=== PATIENT | female | born 1945 | race Caucasian/White ===

== ENCOUNTER 2020-08-18 13:36 | Outpatient (REF) | payer SELFPAY ==
[2020-08-23 19:18] LABS: Patient Race White; SARS-CoV-2 RNA Undetected (Undetected); SARS-CoV-2 Specimen Source Nasal
== END 2020-08-18 13:56 ==
LOC: NCHCN 13:36
PROVIDERS: PCP Family Medicine; Visit Provider Nurse Practitioner Community Health
DX: Z20.828 Contact with and (suspected) exposure to other viral communicable diseases (principal)
CPT/HCPCS: U0003

== ENCOUNTER 2023-10-04 17:02 | Emergency (ER) | payer MEDICARE, SELFPAY ==
[2023-10-04] VITALS (134 sets, daily range): BP systolic 150–225; BP diastolic 69–184; PULSE 68–72; RESP 11–30; TEMP 36.7; O2SAT 97–100
--- NOTE | 2023-10-04 17:15 | RT.EKG_ITS ---
APPROVED REPORT Exam: Resting ECG Reason for Exam: Left-sided weakness Patient Location: E HR:63 bpm ECG Measurements Heart Rate 63 AXIS OR 171 P 52 QRSd 114 QRS 29 QT 445 T -59 QTc 457 Conclusion Sinus rhythm...normal P axis, V-rate 60- 99 Probable left ventricular hypertrophy...(RaVL+SV3)xQRSd >[address] segment or T wave abnormlaiteis to suggest occlusive AR
--- NOTE | 2023-10-04 17:15 | DI.CT_ITS ---
Exam(s) CT BRAIN NECK CTA EXAM: CT BRAIN NECK CTA CLINICAL HISTORY: Fall/trauma, left-sided weakness. TECHNIQUE: Imaging Protocol: Axial CT angiography was performed with multi-slice acquisition and mu lti-planar and 3D reconstructions. CONTRAST MATERIAL: Intravenous: Omnipaque 350 Contrast volume:85 ml COMPARISON: None FINDINGS: CT Head W/O and W contrast: Ventricles and Extra axial spaces: Normal in size and morphology for the patient's age. Hemorrhage: None. Cerebral parenchyma: No evidence of acute infarct or mass. White matter changes consistent with sm all vessel disease. Midline shift: None. Brainstem/Cerebellum: No acute findings.. Calvarium: Normal. Visualized Paranasal sinuses/Mastoids: Clear. Soft Tissues: Unremarkable. Enhancement: Normal. CTA Brain W: Internal Carotid Arteries: Petrous: Normal. Cavernous: Normal. Cerebral: Normal. Middle Cerebral Arteries: Right: No aneurysm, occlusion or significant stenosis. Left: No aneurysm, occlusion or significant stenosis. 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 Right: No aneurysm, occlusion or significant stenosis. Left: No aneurysm, occlusion or significant stenosis. Posterior cerebral Arteries: Right: No aneurysm, occlusion or significant stenosis. Left: No aneurysm, occlusion or significant stenosis. Vertebral Arteries: Right: No aneurysm, occlusion or significant stenosis. Left: No aneurysm, occlusion or significant stenosis. Basilar Artery: No aneurysm, occlusion or significant stenosis. CTA Neck W: Common Carotid: Right: No dissection, occlusion or significant stenosis. Left: Calcification at bulb. No dissection, occlusion or significant stenosis. External Carotid: Right: No dissection, occlusion or significant stenosis. Left: No dissection, occlusion or significant stenosis. Internal Carotid: Right: Mild calcification no dissection, occlusion or significant stenosis. Left: Moderate calcification causes moderate stenosis, 50-69 percent.. No dissection or occlusion. Vertebral Artery: Right: No dissection, occlusion or significant stenosis. Left: No dissection, occlusion or significant stenosis. Lung Apices: Normal. Bones: No acute abnormality. Degenerative changes in the spine. Soft Tissues: Normal. IMPRESSION: 1. 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 No evidence sign ificant vascular stenosis, dissection or occlusion. 2. Unremarkable CT Head. 3. Neck CT: Minimal calcific plaque right common carotid bulb. Moderate calcific plaque left interna l carotid artery causing moderate stenosis, 50-69 percent.. RADIATION DOSE DELIVERED: Total DLP DATA REPOSITORY: All CT scans at this facility are submitted to the National Radiology Data Registry (NRDR) Dose Index Registry (DIR) with the [employer] (A[employer]). RADIATION OPTIMIZATION: All CT scans at this facility use at least one of these dose optimization te chniques: automated exposure control; mA and/or kV adjustment per patient size (includes targeted exa ms where dose is matched to clinical indication); or iterative reconstruction.
--- NOTE | 2023-10-04 17:15 | DI.CT_ITS ---
Exam(s) CT CHEST/ABD/PEL WO EXAM: CT CHEST/ABD/PEL WO CLINICAL HISTORY: fall, back pain. TECHNIQUE: Imaging Protocol: Axial computed tomography images with coronal and sagittal reformatted images were created and reviewed CONTRAST MATERIAL: Intravenous: Noncontrast Oral: yes COMPARISON: No exams were available for comparison FINDINGS: CHEST: Tracheobronchial tree: Patent where visualized. Pulmonary parenchyma: No consolidation or dominant measurable mass. Pleura: No effusion or pneumothorax. Lymph nodes: Within normal limits. Aorta: Thoracic portion non-dilated. Heart: Mildly enlarged. Aortic prosthesis. Heavy mitral valve calcifications versus mitral valve pr osthesis. No pericardial effusion. Coronary artery calcifications. Bones: Sternal wires. Unremarkable for age. No lytic or blastic lesions.No compression fractures. Severe degenerative changes in the shoulders. No rib fractures visualized. Soft tissues: Unremarkable. ABDOMEN and PELVIS: Liver: Normal density. No measurable mass. Gallbladder and biliary tract: No evidence of stones or wall thickening. No biliary dilatation. Pancreas: Normal density, no abnormal calcifications or inflammatory process. Spleen: Normal. Kidneys: Normal size, contour and axis. No radiodense stones hip. No obstructive uropathy. No suspic ious masses seen. Adrenal glands: No masses seen. Aorta: Abdominal portion non-dilated. Moderate atherosclerotic changes. Lymph nodes: Within normal limits. Soft tissues: Unremarkable. Bladder: Unremarkable. Partially obscured by artifact from hip prostheses. Bowel: No obstruction or bowel wall thickening. Mild diverticulosis. Appendix normal. Normal quanti ty of stool. Peritoneal cavity: No ascites. No focal collection. No mesenteric inflammatory response. Bones: Bilateral hip prostheses. Advanced degenerative changes. No acute pelvic or spine fractures. Reproductive organs: Obscured by artifact from hip prostheses. Probable hysterectomy. IMPRESSION: No acute abnormality in the chest, abdomen or pelvis.. RADIATION DOSE DELIVERED: Total DLP DATA REPOSITORY: All CT scans at this facility are submitted to the National Radiology Data Registry (NRDR) Dose Index Registry (DIR) with the [employer] (ACR). RADIATION OPTIMIZATION: All CT scans at this facility use at least one of these dose optimization te chniques: automated exposure control; mA and/or kV adjustment per patient size (includes targeted exa ms where dose is matched to clinical indication); or iterative reconstruction.
--- OUTSIDE RECORDS SUMMARY | 2023-10-04 17:30 | XMS_ITS | CCD ---
Author Name Unknown Address [address] [place] [address] [id number] Organization Unknown Address [address] [place] [address] [id number] Care Team Providers Care Dry Talc Racker Name Role Phone PHUC LANCASTER Attending Physician [phone] PHUC LANCASTER Rounding (Secondary) Physician [phone] Vital Signs Unknown or Not Available. Allergies Allergy Code Allergy Type Reaction Status No Known Drug Allergies 0 No known drug allergies Active LATEX 0916604 Allergy to substance RASH Acti ve Procedures Unknown or Not Available. History of Immunizations Unknown or Not Available. Problems Unknown or Not Available. Results Unknown or Not Available. Active Medications Medication Code Dose Units Frequency Route Modificatio n Start Date/Time Xarelto 10MG Oral Tablet [id number] 1 TABLET DAILY ORAL 03/17/20 14:12 Prescription Detail TAKE 1 TABLET ORAL DAILY WITH FOOD FOR 3 0 DAYS POST OP (THROUGH 04/08/2021) Acetaminophen 500MG Oral Tablet [id number] 2 TABLET NEEDED EVERY 6 HOURS ORAL 03/17/2021 14:07 Prescription Detail TAKE 2 TABLET ORAL NEEDED EVERY 6 EDUARDO RS PRN PAIN Ondansetron 4MG Oral Tablet, Disintegrating [id number] 4 MILLIGRAMS NEEDED EVERY 6 HOURS ORAL 03/17/2021 14:06 Prescription Detail TAKE 4 MILLIGRAMS ORAL NEEDED EVERY 6 HOURS FOR NAUSEA traMADol HCl 50MG Oral Tablet [id number] 50 MILLIGRAMS NEEDED EVERY 6 HOURS ORAL 03/17/2021 14:06 Prescription Detail TAKE 50 MILLIGRAMS ORAL NEEDED EVERY 6 HOURS FOR PAIN CoQ10 200 MG Oral Capsule [id number] 200 MG DAILY ORAL 03/11 12:56 Prescription Detail TAKE 200 MG ORAL DAILY Ezetimibe 10 MG Oral Tablet 719114 10 MG DAILY ORAL 03/11/20 12:56 Prescription Detail TAKE 10 MG ORAL DAILY Levothyroxine 100MCG Oral Tablet 859354 100 MCG DAILY ORAL 03/11/2021 12:56 Prescription Detail TAKE 100 MCG ORAL DAILY Metoprolol Tartrate 50MG Oral Tablet 429346 50 MILLIGRAMS TWICE A DAY ORAL 03/11 12:56 Prescription Detail TAKE 50 MILLIGRAMS ORAL TWICE A DAY Mirtazapine 15MG Oral Tablet 464778 15 MILLIGRAMS BEDTIME ORAL 12:56 Prescription Detail TAKE 15 MILLIGRAMS ORAL BEDTIME Pravastatin 20MG Oral Tablet 599181 20 MILLIGRAMS BEDTIME ORAL 12:56 Prescription Detail TAKE 20 MILLIGRAMS ORAL BEDTIME Valsartan 40 MG Oral Tablet [id number] 40 MG DAILY ORAL 03/11/20 12:56 Prescription Detail TAKE 40 MG ORAL DAILY Venlafaxine HCl 75MG Oral Capsule, Extended Release [id number] 75 MILLIGRAMS TWICE A DAY ORAL 03/11/2021 12:56 Prescription Detail TAKE 75 MILLIGRAMS ORAL TWICE A DAY Medications Administered During Visit Unknown or Not Available. Encounters Encounter Diagnosis Diagnosis Code Start Date Aftercare [id number] 04/02/2022 Social History Smoking Status Code Start Date End Date Never smoker [id number] Patient Decision Aids Unknown or Not Available. Discharge Instructions You were admitted to [facility] on 04/02/2022 14:28 with a principal diagnosis of Aftercare following joint replacement surgery You were discharged from [facility] on 04/02/2022 00:00 Should you have any questions prior to discharge, please contact a member of your healthcare team. If you have left the hospital and have any questions, please contact your primary care physician. Chief Complaint and Reason For Visit Unknown or Not Available. Function Status Unknown or Not Available. Plan of Care Unknown or Not Available. Referral/Transition of Care Unknown or Not Available.
--- OUTSIDE RECORDS SUMMARY | 2023-10-04 17:30 | XMS_ITS | CCD ---
Author Name Unknown Address [address] [place] [address] [id number] Organization Unknown Address [address] [place] [address] [phone] Care Team Providers Care Milk Wagon Driver Name Role Phone PHUC LANCASTER MD Attending Physician [phone] Vital Signs Unknown or Not Available. Allergies Allergy Code Allergy Type Reaction Status No Known Drug Allergies 0 No known drug allergies Active LATEX 1385003 Allergy to substance RASH Acti ve Procedures Unknown or Not Available. History of Immunizations Unknown or Not Available. Problems Unknown or Not Available. Results Unknown or Not Available. Active Medications Medication Code Dose Units Frequency Route Modificatio n Start Date/Time Xarelto 10MG Oral Tablet [id number] 1 TABLET DAILY ORAL 03/17/20 14:12 Prescription Detail TAKE 1 TABLET ORAL DAILY WITH FOOD FOR 3 0 DAYS POST OP (THROUGH 04/08/2021) Acetaminophen 500MG Oral Tablet 871840 2 TABLET NEEDED EVERY 6 HOURS ORAL 03/17/2021 14:07 Prescription Detail TAKE 2 TABLET ORAL NEEDED EVERY 6 EDUARDO RS PRN PAIN Ondansetron 4MG Oral Tablet, Disintegrating 966709 4 MILLIGRAMS NEEDED EVERY 6 HOURS ORAL 03/17/2021 14:06 Prescription Detail TAKE 4 MILLIGRAMS ORAL NEEDED EVERY 6 HOURS FOR NAUSEA traMADol HCl 50MG Oral Tablet 276604 50 MILLIGRAMS NEEDED EVERY 6 HOURS ORAL 03/17/2021 14:06 Prescription Detail TAKE 50 MILLIGRAMS ORAL NEEDED EVERY 6 HOURS FOR PAIN CoQ10 200 MG Oral Capsule [id number] 200 MG DAILY ORAL 03/11 12:56 Prescription Detail TAKE 200 MG ORAL DAILY Ezetimibe 10 MG Oral Tablet 515558 10 MG DAILY ORAL 03/11/20 12:56 Prescription Detail TAKE 10 MG ORAL DAILY Levothyroxine 100MCG Oral Tablet 851661 100 MCG DAILY ORAL 03/11/2021 12:56 Prescription Detail TAKE 100 MCG ORAL DAILY Metoprolol Tartrate 50MG Oral Tablet 228656 50 MILLIGRAMS TWICE A DAY ORAL 03/11 12:56 Prescription Detail TAKE 50 MILLIGRAMS ORAL TWICE A DAY Mirtazapine 15MG Oral Tablet 108284 15 MILLIGRAMS BEDTIME ORAL 12:56 Prescription Detail TAKE 15 MILLIGRAMS ORAL BEDTIME Pravastatin 20MG Oral Tablet 567411 20 MILLIGRAMS BEDTIME ORAL 021 12:56 Prescription Detail TAKE 20 MILLIGRAMS ORAL BEDTIME Valsartan 40 MG Oral Tablet 604189 40 MG DAILY ORAL 03/11/20 12:56 Prescription Detail TAKE 40 MG ORAL DAILY Venlafaxine HCl 75MG Oral Capsule, Extended Release [id number] 75 MILLIGRAMS TWICE A DAY ORAL 03/11/2021 12:56 Prescription Detail TAKE 75 MILLIGRAMS ORAL TWICE A DAY Medications Administered During Visit Unknown or Not Available. Encounters Encounter Diagnosis Diagnosis Code Start Date Aftercare [id number] 04/24/2021 Social History Smoking Status Code Start Date End Date Never smoker [id number] Patient Decision Aids Unknown or Not Available. Discharge Instructions You were admitted to [facility] 01 on 04/24/2021 14:28 with a principal diagnosis of Aftercare following joint replacement surgery You were discharged from [facility] on 04/24/2021 14:29 Should you have any questions prior to [...]
--- OUTSIDE RECORDS SUMMARY | 2023-10-04 17:30 | XMS_ITS | CCD ---
Author Name Unknown Address [address] [place] [address] [id number] Organization Unknown Address [address] [place] [address] [id number] Care Team Providers Care Lead Generator Name Role Phone PHUC LANCASTER MD Attending Physician [phone] Vital Signs Unknown or Not Available. Allergies Allergy Code Allergy Type Reaction Status No Known Drug Allergies 0 No known drug allergies Active LATEX 4436355 Allergy to substance RASH Acti ve Procedures Unknown or Not Available. History of Immunizations Unknown or Not Available. Problems Unknown or Not Available. Results Unknown or Not Available. Active Medications Medication Code Dose Units Frequency Route Modificatio n Start Date/Time Xarelto 10MG Oral Tablet 1281415 1 TABLET DAILY ORAL 03/17/20 14:12 Prescription Detail TAKE 1 TABLET ORAL DAILY WITH FOOD FOR 3 0 DAYS POST OP (THROUGH 04/08/2021) Acetaminophen 500MG Oral Tablet 363660 2 TABLET NEEDED EVERY 6 HOURS ORAL 03/17/2021 14:07 Prescription Detail TAKE 2 TABLET ORAL NEEDED EVERY 6 EDUARDO RS PRN PAIN Ondansetron 4MG Oral Tablet, Disintegrating 442215 4 MILLIGRAMS NEEDED EVERY 6 HOURS ORAL 03/17/2021 14:06 Prescription Detail TAKE 4 MILLIGRAMS ORAL NEEDED EVERY 6 HOURS FOR NAUSEA traMADol HCl 50MG Oral Tablet 739782 50 MILLIGRAMS NEEDED EVERY 6 HOURS ORAL 03/17/2021 14:06 Prescription Detail TAKE 50 MILLIGRAMS ORAL NEEDED EVERY 6 HOURS FOR PAIN CoQ10 200 MG Oral Capsule 45985573140 200 MG DAILY ORAL 03/11 12:56 Prescription Detail TAKE 200 MG ORAL DAILY Ezetimibe 10 MG Oral Tablet 509864 10 MG DAILY ORAL 03/11/20 12:56 Prescription Detail TAKE 10 MG ORAL DAILY Levothyroxine 100MCG Oral Tablet 377594 100 MCG DAILY ORAL 03/11/2021 12:56 Prescription Detail TAKE 100 MCG ORAL DAILY Metoprolol Tartrate 50MG Oral Tablet 653660 50 MILLIGRAMS TWICE A DAY ORAL 03/11 12:56 Prescription Detail TAKE 50 MILLIGRAMS ORAL TWICE A DAY Mirtazapine 15MG Oral Tablet 436755 15 MILLIGRAMS BEDTIME ORAL 12:56 Prescription Detail TAKE 15 MILLIGRAMS ORAL BEDTIME Pravastatin 20MG Oral Tablet 718021 20 MILLIGRAMS BEDTIME ORAL 021 12:56 Prescription Detail TAKE 20 MILLIGRAMS ORAL BEDTIME Valsartan 40 MG Oral Tablet 738775 40 MG DAILY ORAL 03/11/20 12:56 Prescription Detail TAKE 40 MG ORAL DAILY Venlafaxine HCl 75MG Oral Capsule, Extended Release [id number] 75 MILLIGRAMS TWICE A DAY ORAL 03/11/2021 12:56 Prescription Detail TAKE 75 MILLIGRAMS ORAL TWICE A DAY Medications Administered During Visit Unknown or Not Available. Encounters Encounter Diagnosis Diagnosis Code Start Date Hip joint prosthesis present [id number] Social History Smoking Status Code Start Date End Date Never smoker [id number] Patient Decision Aids Unknown or Not Available. Discharge Instructions You were admitted to [facility] 01 on 05/29/2021 14:37 with a principal diagnosis of Presence of right artificial hip joint You were discharged from [facility] on 05/29/2021 14:37 Should you have any questions prior to [...]
[2023-10-04 17:53] LABS: Abs Immature Grans 0.01 10^3/uL (0.0-0.06); Absolute Basophil Count 0.03 10^3/uL (0.0-0.2); Absolute Eosinophil Count 0.17 10^3/uL (0.0-0.7); Absolute Lymphocyte Count 2.54 10^3/uL (1.2-3.4); Absolute Monocyte Count 0.59 10^3/uL (0.1-0.8); Absolute Neutrophil Count 2.99 10^3/uL (1.2-6.7); Basophils % 0.5; Eosinophils % 2.7; HCT 40.7 % (36.0-46.0); HGB 13.1 g/dL (11.2-15.7); Immature Grans % 0.2; Lymphocytes % 40.1; MCH 28.9 pg (27.0-33.0); MCHC 32.2 % (32.0-36.0); MCV 90 fL (80-95); MPV 9.2 fL (8.0-11.0); Monocytes % 9.3; Neutrophils % 47.2; Platelet Count 275 10^3/uL (130-400); RBC 4.54 10^6/uL (3.93-5.22); RDW 13.8 % (11.7-14.6); RDW-SD 44.6 fL; WBC 6.33 10^3/uL (4.4-10.8)
[2023-10-04 18:15] LABS: ALT 36 U/L (14-59); AST 36 U/L (15-37); Albumin 3.7 g/dL (3.4-5.0); Alkaline Phosphatase 92 U/L (46-116); Anion Gap 9.2 mmol/L (3-11); BUN 12 mg/dL (7-18); Bilirubin, Total 0.3 mg/dL (0.2-1.0); CO2 28.8 mmol/L (21.0-32.0); CREATININE 0.9 mg/dL (0.55-1.02); Calcium 9.4 mg/dL (8.5-10.1); Chloride 105 mmol/L (98-107); Estimated GFR 66.26 (mL/min/1.73m2); Glucose 92 mg/dL (74-106); Magnesium 2.1 mg/dL (1.8-2.4); Sodium 143 mmol/L (136-145); Total Protein 6.7 g/dL (6.4-8.2)
[2023-10-04 19:00] LABS: Bilirubin Negative (Negative); Blood Trace-intact (Negative); Clarity Clear (Clear); Glucose Negative (Negative); Ketones Negative (Negative); Leukocyte Esterase Negative (Negative); Nitrite Negative (Negative); Urobilinogen 0.2 mg/dL (Up to 0.2); pH 6.5 (5-8)
[2023-10-04 19:07] LABS: Bacteria Negative HPF (Negative); C & S Indicated? No; Casts Negative LPF (Negative); Crystals Negative HPF (Negative); Epithelial Cells Rare HPF (Negative); Mucus Negative (Negative); RBC 0-2 HPF (0-2); WBC Negative HPF (0-5)
[2023-10-04] MEDS: Normal Saline - Diluent 50 ML VIAL IJ (19:10)
[2023-10-04] MEDS: Normal Saline Flush 10 ML SYR IVP (19:10)
[2023-10-04] MEDS: Omnipaque 350 MG/ML 100 ML BTL IJ (19:11)
--- NOTE | 2023-10-04 20:07 | DI.VRAD_ITS ---
PROCEDURE INFORMATION: Exam: CTA Head With Contrast, Arteriography Exam date and time: 10/04/2023 7:20 PM Age: 78 years old Clinical indication: Injury or trauma; Blunt trauma; Injury details: Fall, trauma, lt sided weakness TECHNIQUE: Imaging protocol: Computed tomographic angiography of the head with contrast. Exam focused on the arteries. 3D rendering (Not supervised by radiologist): MIP and/or 3D reconstructed images were created by the technologist. Contrast material: OMNI 350; Contrast volume: 85 ml; Contrast route: INTRAVENOUS (IV); COMPARISON: No relevant prior studies available. FINDINGS: ANTERIOR CIRCULATION: Right internal carotid artery: Intracranial segment is patent with no significant stenosis. No aneurysm. Right middle cerebral artery: No occlusion or significant stenosis. No aneurysm. Right anterior cerebral artery: No occlusion or significant stenosis. No aneurysm. Anterior communicating artery: 3 x 3 x 3 mm saccular aneurysm is seen arising from anterior communicating artery best visualized on series 12, image 45 and coronal series 22, image 41. Left internal carotid artery: Intracranial segment is patent with no significant stenosis. No aneurysm. Left middle cerebral artery: No occlusion or significant stenosis. No aneurysm. Left anterior cerebral artery: No occlusion or significant stenosis. No aneurysm. POSTERIOR CIRCULATION: Right vertebral artery: No occlusion or significant stenosis. No aneurysm. Left vertebral artery: No occlusion or significant stenosis. No aneurysm. Basilar artery: No occlusion or significant stenosis. No aneurysm. Right posterior cerebral artery: No occlusion or significant stenosis. No aneurysm. Left posterior cerebral artery: No occlusion or significant stenosis. No aneurysm. Brain: There are areas of diminished density in the white matter bilaterally . Findings likely represent foci of chronic small vessel ischemic changes. Cerebrum is otherwise unremarkable. Valadez-white matter differentiation is intact and otherwise unremarkable. No mass lesion is seen. No mass effect or midline shift. Thalamus is unremarkable. No evidence of subdural or epidural bleed. No evidence of intracranial hemorrhage. Cerebellum is unremarkable. No posterior fossa mass lesion or mass effect. No pathologic edema. No evidence of cerebellar hemorrhage. Cerebral ventricles: No ventriculomegaly. Bones/joints: Unremarkable. No acute fracture. Soft tissues: Unremarkable. Other findings: It; No areas of abnormal enhancement after contrast administration. IMPRESSION: 1. No evidence of large vessel occlusion or significant stenosis. 2. 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 3. Areas of diminished density in bilateral white matter likely representing chronic small vessel ischemic changes. PROCEDURE INFORMATION: Exam: CTA Neck With Contrast Exam date and time: 10/04/2023 7:20 PM Age: 78 years old Clinical indication: Injury or trauma; Blunt trauma; Injury details: Fall, trauma, lt sided weakness TECHNIQUE: Imaging protocol: Computed tomographic angiography of the neck with contrast. Exam focused on the cervical segments of the vasculature. 3D rendering (Not supervised by radiologist): MIP and/or 3D reconstructed images were created by the technologist. Contrast material: OMNI 350; Contrast volume: 85 ml; Contrast route: INTRAVENOUS (IV); COMPARISON: CT CHEST/ABD/PEL WO 10/04/2023 7:13 PM FINDINGS: Right common carotid artery: No stenosis. No dissection or occlusion. Right internal carotid artery: No stenosis of the extracranial segment. No dissection or occlusion. Right external carotid artery: No occlusion or stenosis of the origin. Left common carotid artery: No stenosis. No dissection or occlusion. Left internal carotid artery: Atherosclerotic disease in proximal left ICA with areas of stenosis. ICA lumen at the level of stenosis measures 2 mm. ICA lumen distally measures 5 mm. Left external carotid artery: No occlusion or stenosis of the origin. Right vertebral artery: No stenosis. No dissection or occlusion. Left vertebral artery: No stenosis. No dissection or occlusion. Soft tissues: Normal. No significant soft tissue swelling. Bones/joints: Sternotomy wires in place. Degenerative changes in the spine. No evidence of fracture. IMPRESSION: Findings as described above in left internal carotid artery consistent with moderate stenosis measuring 50-69%. REFERENCES: NASCET CRITERIA. The degree of stenosis in the cervical segment of the internal carotid artery is based on NASCET criteria. Normal is no stenosis. Mild is less than 50% stenosis. Moderate is 50-69% stenosis. Severe is 70% to 99% stenosis. Total occlusion is no detectable patent lumen. Dictated and Authenticated by: Dino Sanabria MD. Ordering:LEESA Villalpando MD
--- NOTE | 2023-10-04 20:07 | DI.VRAD_ITS ---
PROCEDURE INFORMATION: Exam: CT Chest Without Contrast; Diagnostic Exam date and time: 10/04/2023 7:13 PM Age: 78 years old Clinical indication: Injury or trauma; Generalized; Blunt trauma (contusions or hematomas); Injury details: Fall, trauma, lt sided weakness; Prior surgery; Surgery type: Hip surg TECHNIQUE: Imaging protocol: Diagnostic computed tomography of the chest without contrast. 3D rendering (Not supervised by radiologist): MIP and/or 3D reconstructed images were created by the technologist. COMPARISON: No relevant prior studies available. FINDINGS: Tubes, catheters and devices: Mitral valve prosthesis versus calcification. Lungs: Unremarkable. No consolidation. No masses. Pleural spaces: Unremarkable. No pneumothorax. No pleural effusion. Heart: Prosthetic aortic valve. Coronary arteries: Mild diffuse coronary artery calcifications. Lymph nodes: Unremarkable. No enlarged lymph nodes. Vasculature: Dense atherosclerotic calcification throughout the thoracic aorta. No evidence of aneurysm. Bones/joints: Sternotomy wires in place. Mild thoracolumbar scoliosis with moderate multilevel degenerative disc disease. No vertebral body compression or acute fracture. Soft tissues: Unremarkable. IMPRESSION: No acute posttraumatic changes in the chest. Chronic appearing findings as noted. PROCEDURE INFORMATION: Exam: CT Abdomen And Pelvis Without Contrast Exam date and time: 10/04/2023 7:13 PM Age: 78 years old Clinical indication: Injury or trauma; Generalized; Blunt trauma (contusions or hematomas); Injury details: Fall, trauma, lt sided weakness; Prior surgery; Surgery type: Hip surg TECHNIQUE: Imaging protocol: Computed tomography of the abdomen and pelvis without contrast. 3D rendering (Not supervised by radiologist): MIP and/or 3D reconstructed images were created by the technologist. COMPARISON: No relevant prior studies available. FINDINGS: Liver: Normal. No mass. Gallbladder and bile ducts: Normal. No calcified stones. No ductal dilation. Pancreas: Normal. No ductal dilation. Spleen: Normal. No splenomegaly. Adrenal glands: Normal. No mass. Kidneys and ureters: Normal. No hydronephrosis. Stomach and bowel: Unremarkable. No obstruction. No mucosal thickening. Appendix: The appendix is visualized and appears normal. Intraperitoneal space: Unremarkable. No free air. No significant fluid collection. Vasculature: Dense atherosclerotic calcification throughout the abdominal aorta. No evidence of aneurysm. Lymph nodes: Unremarkable. No enlarged lymph nodes. Urinary bladder: Unremarkable as visualized. Reproductive: Uterus is surgically absent. No adnexal abnormality. Bones/joints: Bilateral hip prostheses produce streak artifact and partially obscures pelvic structures. Severe multilevel degenerative disc changes and facet arthropathy throughout the lumbar spine with mild grade 1 anterolisthesis of L4. No vertebral body compression or acute fracture. Soft tissues: Unremarkable. IMPRESSION: No acute posttraumatic changes in the abdomen or pelvis. Chronic appearing findings as noted. Dictated and Authenticated by: Herbert Sun MD. Ordering:LEESA Villalpando MD
--- NOTE | 2023-10-04 22:29 | W.ED.GENAD ---
Discharge Plan Disposition Patient Disposition: Transfer-Acute Inpatient Care Specific Acute Inpt Facility: [facility] Discharge Details Clinical Impression: Brain TIA Primary Care Provider: Kimberly Mcclellan ED Provider: Kwasi Guevara Home Meds and New Rx's Prescriptions: No Action rosuvastatin [Crestor] 10 mg tablet 10 mg PO DAILY levothyroxine 100 mcg tablet 100 mcg PO DAILY valsartan 40 mg tablet 40 mg PO BID metoprolol tartrate 50 mg tablet 50 mg PO BID venlafaxine 75 mg tablet 75 mg PO BID mirtazapine 15 mg tablet 15 mg PO QHS aspirin 81 mg capsule 81 mg PO DAILY coenzyme Q10 [Co Q-10] 200 mg capsule 200 mg PO DAILY calcium carbonate [Super Calcium] 600 mg calcium (1,500 mg) tablet 600 mg PO DAILY omega 3-lmq-yks-fish oil [Fish Oil] 1,000 mg (120 mg-180 mg) capsule 1 cap PO DAILY ascorbic acid (vitamin C) [Acerola C] 500 mg tablet,chewable 500 mg PO DAILY magnesium 250 mg tablet 500 mg PO DAILY Rx Instructions: // metformin 500 mg tablet 500 mg PO DAILY cholecalciferol (vitamin D3) [Vitamin D3] 25 mcg (1,000 unit) capsule 1,000 unit PO DAILY ezetimibe 10 mg tablet 10 mg PO DAILY Medical Decision Making Patient presenting to the emergency department for chief complaint of multiple falls and some shoulder and generalized back pain. Patient's daughter states that on Saturday night she had a beer with the family and had a fall where she fell into her closet. Then over the course of the next couple days she has had multiple falls and today reported to her daughter that she was dragging her left leg and that it felt funny. Patient denies any headache, chest pain, shortness of breath. Denies any syncopal episode. Patient has significant past medical history of coronary artery disease with CABG, hyperlipidemia, poorly controlled hypertension and spite of multiple medications, recent diagnosis of diabetes, bilateral hip replacement. Physical exam shows diffuse tenderness to her upper back, no spinal tenderness, marked weakness to both the upper and lower extremity on the left side only, normal sensation, patiently definitely has drift of the lower extremity but there is still some strength present. Vital signs reviewed and are stable except for significant hypertension of 225/75 but daughter states that normal pressures are in the 170s and patient has significant whitecoat syndrome so we will monitor and treat once patient calms down. Please see physician interpretation for full interpretation of EKG but upon my review patient is in sinus rhythm. Will continue to monitor Review of patient's labs show an unremarkable CBC CMP and urinalysis reviewed CT imaging and radiologist interpretation that shows IMPRESSION: No evidence of large vessel occlusion or significant stenosis. 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 Areas of diminished density in bilateral white matter likely representing chronic small vessel ischemic changes. Along with Findings as described above in left internal carotid artery consistent with moderate stenosis measuring 50-69%. Reassessed patient and patient had resolution of symptoms with now full strength and mobility. I still am concerned given multiple falls and potential intermittence of symptoms either being TIA versus CVA. Called and spoke with [facility] [place] [facility] neurology team Dr. Hadley whom recommended that patient be admitted for MRI and echo along with observation. I do agree with this given that patient lives alone. Patient is agreeable to this plan as well. Will give patient her nightly meds given blood pressure remained elevated at 186/69. Imaging Data Radiologic Study: Imaging: CT Scan Radiologist's impression: Exam(s) PROCEDURE INFORMATION: Exam: CTA Head With Contrast, Arteriography Exam date and time: 10/04/2023 7:20 PM Age: 78 years old Clinical indication: Injury or trauma; Blunt trauma; Injury details: Fall, trauma, lt sided weakness TECHNIQUE: Imaging protocol: Computed tomographic angiography of the head with contrast. Exam focused on the arteries. 3D rendering (Not supervised by radiologist): MIP and/or 3D reconstructed images were created by the technologist. Contrast material: OMNI 350; Contrast volume: 85 ml; Contrast route: INTRAVENOUS (IV); COMPARISON: No relevant prior studies available. FINDINGS: ANTERIOR CIRCULATION: Right internal carotid artery: Intracranial segment is patent with no significant stenosis. No aneurysm. Right middle cerebral artery: No occlusion or significant stenosis. No aneurysm. Right anterior cerebral artery: No occlusion or significant stenosis. No aneurysm. Anterior communicating artery: 3 x 3 x 3 mm saccular aneurysm is seen arising from anterior communicating artery best visualized on series 12, image 45 and coronal series 22, image 41. Left internal carotid artery: Intracranial segment is patent with no significant stenosis. No aneurysm. Left middle cerebral artery: No occlusion or significant stenosis. No aneurysm. Left anterior cerebral artery: No occlusion or significant stenosis. No aneurysm. POSTERIOR CIRCULATION: Right vertebral artery: No occlusion or significant stenosis. No aneurysm. Left vertebral artery: No occlusion or significant stenosis. No aneurysm. Basilar artery: No occlusion or significant stenosis. No aneurysm. Right posterior cerebral artery: No occlusion or significant stenosis. No aneurysm. Left posterior cerebral artery: No occlusion or significant stenosis. No aneurysm. Brain: There are areas of diminished density in the white matter bilaterally . Findings likely represent foci of chronic small vessel ischemic changes. Cerebrum is otherwise unremarkable. Valadez-white matter differentiation is intact and otherwise unremarkable. No mass lesion is seen. No mass effect or midline shift. Thalamus is unremarkable. No evidence of subdural or epidural bleed. No evidence of intracranial hemorrhage. Cerebellum is unremarkable. No posterior fossa mass lesion or mass effect. No pathologic edema. No evidence of cerebellar hemorrhage. Cerebral ventricles: No ventriculomegaly. Bones/joints: Unremarkable. No acute fracture. Soft tissues: Unremarkable. Other findings: It; No areas of abnormal enhancement after contrast administration. IMPRESSION: 1. No evidence of large vessel occlusion or significant stenosis. 2. 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 3. Areas of diminished density in bilateral white matter likely representing chronic small vessel ischemic changes. PROCEDURE INFORMATION: Exam: CTA Neck With Contrast Exam date and time: 10/04/2023 7:20 PM Age: 78 years old Clinical indication: Injury or trauma; Blunt trauma; Injury details: Fall, trauma, lt sided weakness TECHNIQUE: Imaging protocol: Computed tomographic angiography of the neck with contrast. Exam focused on the cervical segments of the vasculature. 3D rendering (Not supervised by radiologist): MIP and/or 3D reconstructed images were created by the technologist. Contrast material: OMNI 350; Contrast volume: 85 ml; Contrast route: INTRAVENOUS (IV); COMPARISON: CT CHEST/ABD/PEL WO 10/04/2023 7:13 PM FINDINGS: Right common carotid artery: No stenosis. No dissection or occlusion. Right internal carotid artery: No stenosis of the extracranial segment. No dissection or occlusion. Right external carotid artery: No occlusion or stenosis of the origin. Left common carotid artery: No stenosis. No dissection or occlusion. Left internal carotid artery: Atherosclerotic disease in proximal left ICA with areas of stenosis. ICA lumen at the level of stenosis measures 2 mm. ICA lumen distally measures 5 mm. Left external carotid artery: No occlusion or stenosis of the origin. Right vertebral artery: No stenosis. No dissection or occlusion. Left vertebral artery: No stenosis. No dissection or occlusion. Soft tissues: Normal. No significant soft tissue swelling. Bones/joints: Sternotomy wires in place. Degenerative changes in the spine. No evidence of fracture. IMPRESSION: Findings as described above in left internal carotid artery consistent with moderate stenosis measuring 50-69%. Radiologic Study #2: Imaging: CT Scan Radiologist's impression: Exam(s) PROCEDURE INFORMATION: Exam: CT Chest Without Contrast; Diagnostic Exam date and time: 10/04/2023 7:13 PM Age: 78 years old Clinical indication: Injury or trauma; Generalized; Blunt trauma (contusions or hematomas); Injury details: Fall, trauma, lt sided weakness; Prior surgery; Surgery type: Hip surg TECHNIQUE: Imaging protocol: Diagnostic computed tomography of the chest without contrast. 3D rendering (Not supervised by radiologist): MIP and/or 3D reconstructed images were created by the technologist. COMPARISON: No relevant prior studies available. FINDINGS: Tubes, catheters and devices: Mitral valve prosthesis versus calcification. Lungs: Unremarkable. No consolidation. No masses. Pleural spaces: Unremarkable. No pneumothorax. No pleural effusion. Heart: Prosthetic aortic valve. Coronary arteries: Mild diffuse coronary artery calcifications. Lymph nodes: Unremarkable. No enlarged lymph nodes. Vasculature: Dense atherosclerotic calcification throughout the thoracic aorta. No evidence of aneurysm. Bones/joints: Sternotomy wires in place. Mild thoracolumbar scoliosis with moderate multilevel degenerative disc disease. No vertebral body compression or acute fracture. Soft tissues: Unremarkable. IMPRESSION: No acute posttraumatic changes in the chest. Chronic appearing findings as noted. PROCEDURE INFORMATION: Exam: CT Abdomen And Pelvis Without Contrast Exam date and time: 10/04/2023 7:13 PM Age: 78 years old Clinical indication: Injury or trauma; Generalized; Blunt trauma (contusions or hematomas); Injury details: Fall, trauma, lt sided weakness; Prior surgery; Surgery type: Hip surg TECHNIQUE: Imaging protocol: Computed tomography of the abdomen and pelvis without contrast. 3D rendering (Not supervised by radiologist): MIP and/or 3D reconstructed images were created by the technologist. COMPARISON: No relevant prior studies available. FINDINGS: Liver: Normal. No mass. Gallbladder and bile ducts: Normal. No calcified stones. No ductal dilation. Pancreas: Normal. No ductal dilation. Spleen: Normal. No splenomegaly. Adrenal glands: Normal. No mass. Kidneys and ureters: Normal. No hydronephrosis. Stomach and bowel: Unremarkable. No obstruction. No mucosal thickening. Appendix: The appendix is visualized and appears normal. Intraperitoneal space: Unremarkable. No free air. No significant fluid collection. Vasculature: Dense atherosclerotic calcification throughout the abdominal aorta. No evidence of aneurysm. Lymph nodes: Unremarkable. No enlarged lymph nodes. Urinary bladder: Unremarkable as visualized. Reproductive: Uterus is surgically absent. No adnexal abnormality. Bones/joints: Bilateral hip prostheses produce streak artifact and partially obscures pelvic structures. Severe multilevel degenerative disc changes and facet arthropathy throughout the lumbar spine with mild grade 1 anterolisthesis of L4. No vertebral body compression or acute fracture. Soft tissues: Unremarkable. IMPRESSION: No acute posttraumatic changes in the abdomen or pelvis. Chronic appearing findings as noted. Lab Data Lab results reviewed: Yes I reviewed the patient's lab results. HPI General Mode of arrival: ambulatory. Date/Time Provider Initiated Documentation: 10/04/23 17:28. Limitations to Documentation: no limitations. Information obtained by: patient, family and RN notes reviewed. History of Present Illness 78 year old F presents to the emergency department with the chief complaint of Multiple falls, left leg weakness, Quality is described as aching, and is localized to the back. Patient started experiencing this day(s) (2) and it has been intermittent. No relieving factors improve symptom(s), Patient did receive the following treatments prior to arrival, none Related Data Home Medications Medication Instructions Recorded Confirmed ascorbic acid (vitamin C) 500 mg 500 mg PO DAILY 10/04/23 10/04/23 chewable tablet (Acerola C) aspirin 81 mg capsule 81 mg PO DAILY 10/04/23 10/04/23 calcium carbonate 600 mg calcium 600 mg PO DAILY 10/04/23 10/04/23 (1,500 mg) tablet (Super Calcium) cholecalciferol (vitamin D3) 25 1,000 unit PO DAILY 10/04/23 10/04/23 mcg (1,000 unit) capsule (Vitamin D3) coenzyme Q10 200 mg capsule (Co 200 mg PO DAILY 10/04/23 10/04/23 Q-10) ezetimibe 10 mg tablet 10 mg PO DAILY 10/04/23 10/04/23 levothyroxine 100 mcg tablet 100 mcg PO DAILY 10/04/23 10/04/23 magnesium 250 mg tablet 500 mg PO DAILY 10/04/23 10/04/23 metformin 500 mg tablet 500 mg PO DAILY 10/04/23 10/04/23 metoprolol tartrate 50 mg tablet 50 mg PO BID 10/04/23 10/04/23 mirtazapine 15 mg tablet 15 mg PO QHS 10/04/23 10/04/23 omega 6-bqj-kqw-fish oil 1,000 mg 1 cap PO DAILY 10/04/23 10/04/23 (120 mg-180 mg) capsule (Fish Oil) rosuvastatin 10 mg tablet (Crestor) 10 mg PO DAILY 10/04/23 10/04/23 valsartan 40 mg tablet 40 mg PO BID 10/04/23 10/04/23 venlafaxine 75 mg tablet 75 mg PO BID 10/04/23 10/04/23 Allergies Allergy/AdvReac Type Severity Reaction Status Date / Time Latex, Natural Rubber Allergy Intermediate Skin Rash Unverified 10/04/23 23:14 General Stated Complaint: GenMedical AVELINA: 3 Review of Systems Constitutional Constitutional: Denies chills, Denies fever(s), Denies headache(s) and Denies malaise ENT Ears, Nose, Mouth, and Throat: Denies headache(s) Cardiovascular Cardiovascular: Denies chest pain, Denies irregular heart rhythm and Denies dyspnea Respiratory Respiratory: Denies cough and Denies dyspnea Gastrointestinal Gastrointestinal: Denies nausea and Denies vomiting Genitourinary Genitourinary: Denies dysuria Musculoskeletal Musculoskeletal: Reports back pain, Reports muscle weakness and Reports tingling Integumentary/Breasts Skin/Breast: Denies unusual bruising Neurologic Neurologic: Denies headache(s), Reports localized weakness and Reports tingling PFSH All Active Problems (Updated 10/04/23 @ 22:54 by Kwasi Guevara NP) Brain TIA (Acute) Diabetes (Chronic) Hyperlipidemia (Acute) Hypertension (Chronic) Surgical History (Updated 10/04/23 @ 22:31 by Kwasi Guevara NP) Hx of CABG Social History Smoking/Tobacco Use Status: Never Smoking risk assessment performed?: Yes Alcohol Intake: never Drug use: Never Substance use type: does not use Housing: apartment Do you feel safe at home: Yes Do you feel safe in your relationship?: Yes Exam Const General: cooperative, no acute distress and well groomed Orientation: alert, awake and oriented x3 [facility] Head: normal to inspection Ears: hearing grossly normal bilaterally Mouth: moist mucous membranes Throat: posterior oropharynx normal Eyes Visual Romero: normal visual romero by confrontation Alignment and Position: alignment normal Periorbital: periorbital findings normal Eyelids: eyelids normal Sclera: sclerae normal Pupils: PERRL EOM: EOM intact bilaterally Neck Neck: normal visual inspection, full ROM and no meningeal signs Resp Effort & Inspection: normal respiratory effort and able to speak in complete sentences Auscultation: clear to auscultation bilaterally Cardio Rate: regular rate Rhythm: regular rhythm Heart Sounds: S1 normal and S2 normal Back/Spine/Pelvis Thoracic/Lumbar Spine: No thoracic spinal tenderness and No lumbar spinal tenderness Neuro General: patient alert, patient awake, patient oriented x3, moves all extremities, CN's II-XI intact bilaterally and not confused Cognition: normal cognition Speech: speech normal Motor: no fasciculations, pronator drift pronator drift of left upper extremity and strength abnormal left lower extremity Sensory Exam: no sensory deficits noted Coordination: [id number] test normal and Does not sway with eyes open Extrem Right upper extremity: shoulder/upper arm Details: tenderness Location: of the scapula Course Vital Signs Vital signs: Vital Signs Pulse 72 10/04/23 17:16 Respiratory Rate 15 10/04/23 17:16 Blood Pressure 225/75 H 10/04/23 17:16 Pulse Oximetry 98 10/04/23 17:16 Temperature 36.7 C 10/04/23 17:26 Pulse 68 10/04/23 17:26 Respiratory Rate 12 10/04/23 21:35 Respiratory Effort Normal, Non-Labored 10/04/23 17:26 Respiratory Depth Normal 10/04/23 17:26 Respiratory Pattern Normal 10/04/23 17:26 Blood Pressure 186/69 H 10/04/23 17:26 Blood Pressure Position Supine 10/04/23 17:26 Pulse Oximetry 98 10/04/23 21:34 Oxygen Delivery Method Room Air 10/04/23 17:26 Oxygen Flow Rate 0 10/04/23 17:16 Lab/Test Results Lab/Test Results: Laboratory Tests Range/Units 10/04/23 10/04/23 17:40 18:52 WBC (4.4-10.8) 10^3/uL 6.33 RBC (3.93-5.22) 10^6/uL 4.54 Hgb (11.2-15.7) g/dL 13.1 Hct (36.0-46.0) % 40.7 MCV (80-95) fL 90 MCH (27.0-33.0) pg 28.9 MCHC (32.0-36.0) % 32.2 RDW (11.7-14.6) % 13.8 Plt Count (130-400) 10^3/uL 275 MPV (8.0-11.0) fL 9.2 Immature Gran % 0.2 Neutrophils % 47.2 Lymphocytes % 40.1 Monocytes % 9.3 Eosinophils % 2.7 Basophils % 0.5 Nucleated RBC % (0.0-0.3) % 0.0 Absolute Neutrophils (1.2-6.7) 10^3/uL 2.99 Absolute Lymphocytes (1.2-3.4) 10^3/uL 2.54 Absolute Monocytes (0.1-0.8) 10^3/uL 0.59 Absolute Eosinophils (0.0-0.7) 10^3/uL 0.17 Absolute Basophils (0.0-0.2) 10^3/uL 0.03 Sodium (136-145) mmol/L 143 Potassium (3.5-5.1) mmol/L 4.0 Chloride (98-107) mmol/L 105 Carbon Dioxide (21.0-32.0) mmol/L 28.8 Anion Gap (3-11) mmol/L 9.2 BUN (7-18) mg/dL 12 Creatinine (0.55-1.02) mg/dL 0.9 Est GFR (CKD-EPI 2020) (mL/min/1.73m2) 66.26 Glucose (74-106) mg/dL 92 Calcium (8.5-10.1) mg/dL 9.4 Magnesium (1.8-2.4) mg/dL 2.1 Total Bilirubin (0.2-1.0) mg/dL 0.3 AST (15-37) U/L 36 ALT (14-59) U/L 36 Alkaline Phosphatase (46-116) U/L 92 Total Protein (6.4-8.2) g/dL 6.7 Albumin (3.4-5.0) g/dL 3.7 Urine Color (Yellow) Yellow Urine Clarity (Clear) Clear Urine pH (5-8) 6.5 Ur Specific [place] (1.005-1.025) 1.010 Urine Protein (Negative) mg/dL Negative Urine Ketones (Negative) mg/dL Negative Urine Blood (Negative) Trace-intact H Urine Nitrite (Negative) Negative Urine Bilirubin (Negative) Negative Urine Urobilinogen (Up to 0.2) mg/dL 0.2 Ur Leukocyte Esterase (Negative) Negative Urine RBC (0-2) HPF 0-2 Urine WBC (0-5) HPF Negative Ur Epithelial Cells (Negative) HPF Rare Urine Crystals (Negative) HPF Negative Urine Bacteria (Negative) HPF Negative Urine Casts (Negative) LPF Negative Urine Mucus (Negative) Negative Ur Culture Indicated? No Urine Glucose (Negative) mg/dL Negative
[2023-10-04] MEDS: Valsartan 40 MG TAB PO (23:10)
[2023-10-04] MEDS: Metoprolol 50 MG TAB PO (23:10)
[2023-10-04] MEDS: Venlafaxine 75 MG TAB PO (23:10)
[2023-10-05 00:01] VITALS: BP 150/135; PULSE 72; RESP 18; TEMP 36.5; O2SAT 98
== END 2023-10-04 23:53 | disposition short-term general hospital (02) ==
PROVIDERS: Emergency Provider Nurse Practitioner Family; PCP Family Medicine
DX: G45.9 Transient cerebral ischemic attack, unspecified (principal); I10 Essential (primary) hypertension; R29.6 Repeated falls; M54.9 Dorsalgia, unspecified; E11.9 Type 2 diabetes mellitus without complications; E78.5 Hyperlipidemia, unspecified
CPT/HCPCS: 36416; 70496; 70498; 71250; 80053; 82962; 93005; 99285; 74176; 81003; 81015; 83735; 85025; 93010; J3490

== ENCOUNTER 2024-01-06 15:08 | Outpatient (REF) | payer MEDICARE, SELFPAY | END 2024-01-06 15:09 | disposition home or self-care (01) | LOC: NCHCN 15:08 | PROVIDERS: PCP Family Medicine; Visit Provider Registered Nurse | DX: R30.0 Dysuria (principal) | CPT/HCPCS: 87086 ==

== ENCOUNTER → 2024-01-17 00:14 | Outpatient (CLI) | payer MEDICARE, SELFPAY ==
--- NOTE | 2024-01-17 | DI.CT_ITS ---
Exam(s) CT BRAIN CTA EXAM: CT BRAIN CTA CLINICAL HISTORY: I67.1 Anterior communicating artery aneurysm. TECHNIQUE: Imaging Protocol: Both noninfused and contrast infused CT scans of the brain were perform ed. IV Contrast Dose =75 cc Axial computed tomography images with coronal and sagittal reformatted images were created and review ed COMPARISON: CT CT BRAIN NECK CTA from 10/04/2023 FINDINGS: CTA: The size of the previously described tear communicating artery aneurysm is unchanged. This is again noted to come off the superior aspect of the anterior communicating artery and measures 3 x 4 mm, pro jecting anterosuperiorly between origins of both patent anterior cerebral arteries. There are no other aneurysms evident. Posterior communicating artery again noted on the right side o f the [id number]-Hyleos. No significant stenosis nor dissection evident in the intracranial arteries. No evidence of vascular malformation. There is no evidence of intracranial hemorrhage, mass effect, or shift of midline structures. There are no extra-axial fluid collections. The ventricles are not enlarged or shifted and there is no blo od within the ventricular system nor within the basal cisterns. Again noted is significant periventricular hypodensity consistent with chronic small vessel disease. There is also a new lacunar infarct in the right supra ventricular white matter measuring 6 x 4 mm, not evident on the prior CT scan of 10/04/2023. Unchanged lacunar infarcts again noted in the right external capsule and posterior left basal ganglia. There are no ring enhancing lesions in the brain and there is no abnormal meningeal enhancement, foca l or diffuse. IMPRESSION: Unchanged stable appearance of the previously described aneurysm projecting anterosuperiorly off of t he anterior communicating artery, unchanged from CT scan of 10/04/2023.No additional aneurysms eviden t. No vascular malformation seen. No ring enhancing lesions in the brain nor abnormal meningeal enh ancement In addition to previously described chronic small-vessel white matter ischemic changes there does anayeli ear to be a new nonhemorrhagic lacunar infarct in the right supra ventricular white matter which was not evident on the scan of September 2023. If clinically indicated follow-up MRI with diffusion imagi ng can be performed.. RADIATION DOSE DELIVERED: Total DLP DATA REPOSITORY: All CT scans at this facility are submitted to the National Radiology Data Registry (NRDR) Dose Index Registry (DIR) with the [employer] ([employer]). RADIATION OPTIMIZATION: All CT scans at this facility use at least one of these dose optimization te chniques: automated exposure control; mA and/or kV adjustment per patient size (includes targeted exa ms where dose is matched to clinical indication); or iterative reconstruction.
[2024-01-17 12:49] LABS: Estimated GFR 58.39 (mL/min/1.73m2)
[2024-01-17] MEDS: Omnipaque 350 MG/ML 500 ML BTL-Imaging package 100 ML IJ (13:55)
[2024-01-17] MEDS: Normal Saline - Diluent 50 ML VIAL IJ (13:56)
== END ==
PROVIDERS: PCP Family Medicine; Visit Provider Occupational Therapist
DX: I67.1 Cerebral aneurysm, nonruptured (principal)
CPT/HCPCS: 70496; 82565

== ENCOUNTER 2024-02-18 18:02 | Outpatient (REF) | payer MEDICARE, SELFPAY ==
[2024-02-18 21:35] LABS: Anion Gap 5.1 mmol/L (3-11); BUN 10 mg/dL (7-18); CO2 30.9 mmol/L (21.0-32.0); Calcium 9.3 mg/dL (8.5-10.1); Chloride 109 mmol/L (98-107); Estimated GFR 58.39 (mL/min/1.73m2); Glucose 103 mg/dL (74-106); Potassium 4.1 mmol/L (3.5-5.1); Sodium 145 mmol/L (136-145); TSH (W/Ref FT4) 2.65 uIU/mL (0.36-3.74)
== END 2024-02-18 18:03 | disposition home or self-care (01) ==
LOC: NCHCN 18:02
PROVIDERS: PCP Family Medicine; Visit Provider Family Medicine
DX: I10 Essential (primary) hypertension (principal); E03.9 Hypothyroidism, unspecified
CPT/HCPCS: 80048; 84443

== ENCOUNTER 2024-07-15 00:49 | Outpatient (CLI) | payer MEDICARE, SELFPAY ==
--- NOTE | 2024-07-15 | DI.CT_ITS ---
Exam(s) CT BRAIN CTA EXAM: CT BRAIN CTA CLINICAL HISTORY: ANTERIOR COMMUNICATING ARTERY ANEURYSM, I67.1. TECHNIQUE: Imaging Protocol: Both noninfused and contrast infused CT scans of the brain were perform ed. IV Contrast Dose =70 cc Axial computed tomography images with coronal and sagittal reformatted images were created and review ed COMPARISON: CT CT BRAIN CTA from 01/17/2024 FINDINGS: Quality of the study is less than optimal due to technical factors. However deemed to be readable an d for comparison purposes to the prior study of 01/17/2024 There are no skull fractures nor fluid in the visualized paranasal sinuses. There is no evidence of intracranial hemorrhage, mass effect, or shift of midline structures. There are no extra-axial fluid collections. The ventricles are not enlarged or shifted and there is no blo od within the ventricular system nor within the basal cisterns.There is some bilateral periventricula r hypodensity consistent with chronic small vessel disease again noted. 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 No evidence of new ischemic territorial infarction. There are no ring enhancing lesions in the brain and there is no abnormal meningeal enhancement, foca l or diffuse. CTA: The internal carotid arteries in the skull base and cavernous sinuses are patent. There is some circ umferential calcification within the intra cavernous ICAs but without critical stenosis. Supraclinoi d aspects of both internal carotid arteries are patent and nonaneurysmal. The left A1 segment is aga in noted be dominant. Both anterior cerebral arteries are patent. The previously described cephalad pointing anterior communicating artery aneurysm appears unchanged in size. It measures 4 x 3 mm, un changed. It does not contain thrombus. There are no new additional aneurysms evident in the [place] including the tip of the basilar artery. Middle cerebral arteries are patent. Again noted a posterior communicating artery on the right side of the [id number] supplying the right posterior cerebral artery. There is no posterior communi cating artery on the left side of the [id number]-Opsven. IMPRESSION: No significant new intracranial findings.The 4 x 3 mm anterosuperior pointing aneurysm at the level t he anterior communicating artery appears stable at this time. No evidence of hemorrhage. No other a neurysms evident. Stable appearing 6 by 4 mm nonhemorrhagic nonacute appearing lacunar infarct in the right supra ventr icular white matter. No new territorial infarcts evident. No hemorrhage.. RADIATION DOSE DELIVERED: 1,887.57mGy.cm Total DLP DATA REPOSITORY: All CT scans at this facility are submitted to the National Radiology Data Registry (NRDR) Dose Index Registry (DIR) with the [employer] ([employer]). RADIATION OPTIMIZATION: All CT scans at this facility use at least one of these dose optimization te chniques: automated exposure control; mA and/or kV adjustment per patient size (includes targeted exa ms where dose is matched to clinical indication); or iterative reconstruction.
[2024-07-15 10:21] LABS: CREATININE 0.9 mg/dL (0.55-1.02); Estimated GFR 65.84 (mL/min/1.73m2)
[2024-07-15] MEDS: Normal Saline - Diluent 50 ML VIAL IJ (11:08)
[2024-07-15] MEDS: Omnipaque 350 MG/ML 100 ML BTL 70 ML IJ (11:09)
== END 2024-07-15 01:09 ==
LOC: DI 00:50
PROVIDERS: PCP Family Medicine; Visit Provider Neurological Surgery
DX: I67.1 Cerebral aneurysm, nonruptured (principal)
CPT/HCPCS: 70496; 82565; J3490

== ENCOUNTER 2025-02-17 13:30 | Outpatient (REF) | payer MEDICARE, SELFPAY ==
[2025-02-17 17:04] LABS: Hemoglobin A1C 6.4 % (<5.7)
[2025-02-17 17:25] LABS: Anion Gap 6.4 mmol/L (3-11); BUN 13 mg/dL (7-18); CO2 29.6 mmol/L (21.0-32.0); CREATININE 0.9 mg/dL (0.55-1.02); Calcium 9.3 mg/dL (8.5-10.1); Chloride 108 mmol/L (98-107); Estimated GFR 65.84 (mL/min/1.73m2); Glucose 115 mg/dL (74-106); Potassium 4.3 mmol/L (3.5-5.1); Sodium 144 mmol/L (136-145); TSH (W/Ref FT4) 0.93 uIU/mL (0.36-3.74); Vitamin B12 291 pg/mL (193-986)
== END 2025-02-17 13:31 | disposition home or self-care (01) ==
LOC: NCHCN 13:30
PROVIDERS: PCP Family Medicine; Visit Provider Family Medicine
DX: I10 Essential (primary) hypertension (principal); E03.9 Hypothyroidism, unspecified; E11.9 Type 2 diabetes mellitus without complications; E53.8 Deficiency of other specified B group vitamins
CPT/HCPCS: 80048; 82607; 83036; 84443